=== PATIENT | female | born 1970 | race African-American/Black ===

== ENCOUNTER 2024-06-03 21:59 | Emergency (ER) | payer MEDICAID ==
[~2024-06-03] VITALS: Ht 157.5 cm; Wt 109.0 kg
[2024-06-03 22:04] VITALS: O2SAT 97
[2024-06-03] MEDS ORDERED: METHYLPREDNISOLONE SOD SUCC 125MG/2ML (ACT-O-VIAL) IM ONE (22:45)
[2024-06-03] MEDS ORDERED: FAMOTIDINE 20MG TABLET PO ONE (22:45)
[2024-06-03 23:31] LABS: BASOPHILS % 0.3 % (0.0-2.0); EOSINOPHILS % 0.4 % (0.0-5.0); HEMATOCRIT. 46.2 % (36.0-48.0); HEMOGLOBIN. 15.2 g/dL (12.0-16.0); LYMPHOCYTES % 17.2 % (20.0-50.0); MEAN CORPUSCULAR HEMOGLOBIN 29.5 pg (28.0-32.0); MEAN CORPUSCULAR HGB CONC 32.8 g/dL (31.0-37.0); MEAN CORPUSCULAR VOLUME 89.9 fL (81.0-99.0); MEAN PLATELET VOLUME 9.6 fl (7.4-10.4); MONOCYTES % 4.9 % (2.0-8.0); NEUTROPHILS % 77.2 % (40.0-76.0); PLATELET 402 x1000/uL (130-400); RED BLOOD CELL COUNT 5.15 mill/uL (4.2-5.4); RED CELL DISTRIBUTION WIDTH 14.7 % (11.6-14.6); WHITE BLOOD COUNT 12.8 x1000/uL (4.5-11.0)
[2024-06-03 23:37] LABS: CHLORIDE 104 mEq/L (98-107); POTASSIUM 3.7 mEq/L (3.5-5.1); SODIUM 135 mEq/L (136-145)
[2024-06-03 23:38] LABS: CARBON DIOXIDE 23 mEq/L (21-32)
[2024-06-03 23:39] LABS: CALCIUM 9.3 mg/dL (8.7-10.4)
[2024-06-03 23:43] LABS: CREATININE 1.3 mg/dL (0.6-1.0); GLUCOSE 253 mg/dL (70-105); UREA NITROGEN BLOOD 22 mg/dL (9-23)
[2024-06-03 23:44] LABS: TROPONIN I HIGH SENSITIVITY 23 ng/L (3.0-34)
[2024-06-04] MEDS ORDERED: DIPH25CA83 PO (00:40)
[2024-06-04] MEDS ORDERED: P20 MT (00:40)
[2024-06-04] MEDS ORDERED: EPIN0.3P3 IM (00:40)
[2024-06-04] MEDS: FAMOTIDINE 20MG TABLET PO NR (01:36)
[2024-06-04] MEDS: METHYLPREDNISOLONE SOD SUCC 125MG/2ML (ACT-O-VIAL) IM NR (01:36)
[2024-06-04 02:29] VITALS: BP 143/68; PULSE 59; RESP 16; TEMP 98.1
== END 2024-06-04 02:31 | disposition home or self-care (01) ==
LOC: ER 21:59
DX: L50.0 Allergic urticaria (principal); E78.00 Pure hypercholesterolemia, unspecified; I10 Essential (primary) hypertension; Z79.899 Other long term (current) drug therapy
CPT/HCPCS: 80048; 83880; 85025; 84484; 36415; 71045; 93005; 99285; 96372; J2919; Z7610 ×2